=== PATIENT | male | born 1965 | race African-American/Black ===

== ENCOUNTER 2019-01-24 15:33 | Emergency (ER) | payer SELFPAY ==
[~2019-01-24] VITALS: Ht 182.9 cm; Wt 99.8 kg
--- NOTE | 2019-01-24 15:45 | NUR ---
blood drawn for labs. to radiology for head ct and chest xray
--- NOTE | 2019-01-24 16:05 | NUR ---
in room 2b, seen by Dr Acuña.
[2019-01-24 16:44] LABS: BASOPHILS % (AUTO) 0.9 % (0.0-2.0); EOSINOPHILS # (AUTO) 0.1 K/uL (0.0-0.7); EOSINOPHILS % (AUTO) 2.3 % (0.0-7.0); HEMATOCRIT 41.6 % (36.7-47.1); HEMOGLOBIN 13.3 g/dL (12.5-16.3); LYMPHOCYTES # (AUTO) 1.1 K/uL (20.0-40.0); LYMPHOCYTES % (AUTO) 37.7 % (20.5-51.5); MEAN CORPUSCULAR HGB CONC 32 g/dL (32.5-36.3); MEAN CORPUSCULAR VOLUME 90.4 fL (73.0-96.2); MONOCYTES # (AUTO) 0.3 K/uL (2.0-10.0); MONOCYTES % (AUTO) 11.6 % (0.0-11.0); NEUTROPHILS # (AUTO) 1.4 K/uL (1.8-8.9); NEUTROPHILS % (AUTO) 47.5 % (38.5-71.5); PLATELET COUNT (AUTO) 125 K/uL (152-348); WHITE BLOOD COUNT (AUTO) 2.9 K/uL (3.6-10.2)
[2019-01-24 16:52] LABS: CREATININE 1.1 mg/dL (0.6-1.3); POTASSIUM 4.4 mmol/L (3.5-5.1)
[2019-01-24 16:58] LABS: BILIRUBIN,DIRECT 0.1 mg/dL (0.0-0.2); BILIRUBIN,TOTAL 0.6 mg/dL (0.2-1.0); TOTAL PROTEIN, SERUM 7.8 g/dL (6.4-8.2)
[2019-01-24 17:38] VITALS: BP 130/75
== END 2019-01-24 17:38 | disposition home or self-care (01) ==
LOC: ER 15:33
DX: Z00.00 Encounter for general adult medical examination without abnormal findings (principal); R06.02 Shortness of breath; R41.3 Other amnesia
CPT/HCPCS: 36415; 70030-TC; 70450; 71045; 85025; A4663

== ENCOUNTER 2021-03-07 05:44 | Emergency (ER) | payer MEDICAID ==
[~2021-03-07] VITALS: Ht 185.4 cm; Wt 114.0 kg
[2021-03-07 06:02] VITALS: BP 128/71
--- NOTE | 2021-03-07 06:02 | NUR ---
Patient discharged to home in stable condition. Written and verbal after care instructions given. Patient verbalizes understanding of instructions. Stressed follow up or return to ER for worsening s/s. Ambulated from ER with stable gait. All belongings with patient.
== END 2021-03-07 06:03 | disposition home or self-care (01) ==
LOC: ER 05:46
DX: Z03.6 Encounter for observation for suspected toxic effect from ingested substance ruled out (principal); Z59.0 Homelessness; E11.9 Type 2 diabetes mellitus without complications
CPT/HCPCS: A4663